=== PATIENT | female | born 1995 | race African-American/Black ===

== ENCOUNTER 2018-06-21 14:35 | Emergency (ER) | payer MEDICAID ==
[~2018-06-21] VITALS: Ht 167.6 cm; Wt 60.8 kg
--- NOTE | 2018-06-21 15:47 | PHYS DOC ---
Past Medical History Past Medical History: No Pertinent History (ADEOLA PEREZ APRN) Past Surgical History: No Surgical History (ADEOLA PEREZ APRN) Alcohol Use: Occasionally Drug Use: Marijuana (ADEOLA PEREZ APRN) Adult General Chief Complaint Chief Complaint: VAGINAL PROBLEM HPI HPI Patient is a 23 year old female with history of STDs including chlamydia who presents to the ED today complaining of vaginal discharge, dysuria and vaginal irritation for 1 week. Patient is concerned about STDs, would like to be tested and treated. Unknown if she is or not. (ADEOLA PEREZ APRN) Review of Systems Review of Systems Constitutional: Denies fever or chills [] Eyes: Denies change in visual acuity, redness, or eye pain [] HENT: Denies nasal congestion or sore throat [] Respiratory: Denies cough or shortness of breath [] Cardiovascular: No additional information not addressed in HPI [] GI: Denies abdominal pain, nausea, vomiting, bloody stools or diarrhea Female : STD concerns : Reports dysuria, denies hematuria [] Musculoskeletal: Denies back pain or joint pain [] Integument: Denies rash or skin lesions [] Neurologic: Denies headache, focal weakness or sensory changes [] All other systems were reviewed and found to be within normal limits, except as documented in this note. (ADEOLA PEREZ APRN) Current Medications Current Medications Current Medications Medications (Trade) Dose Ordered Sig/Sophia Start Time Stop Time Status Last Admin Dose Admin Azithromycin (Zithromax) 1,000 mg 1X ONCE 06/21/18 16:30 06/21/18 16:31 DC 06/21/18 16:02 1,000 MG Ceftriaxone Sodium (Rocephin Im) 250 mg 1X ONCE 06/21/18 16:30 06/21/18 16:31 DC 06/21/18 16:28 250 MG Cetirizine HCl (ZyrTEC) 10 mg 1X STAT 06/21/18 15:49 06/21/18 15:57 DC 06/21/18 16:03 10 MG Metronidazole (Flagyl) 2,000 mg 1X ONCE 06/21/18 16:30 06/21/18 16:31 DC 06/21/18 16:02 2,000 MG Ondansetron HCl (Zofran Odt) 4 mg 1X ONCE 06/21/18 16:30 06/21/18 16:31 DC 06/21/18 16:02 4 MG (MARIA ELENA ADAME MD) Allergies Allergies Allergies Coded Allergies Type Severity Reaction Last Updated Verified cephalexin Allergy Unknown 06/21/18 Yes sulfamethoxazole Allergy Unknown 06/21/18 Yes trimethoprim Allergy Unknown 06/21/18 Yes (MARIA ELENA ADAME MD) Physical Exam Physical Exam Constitutional: Well developed, well nourished, no acute distress, non-toxic appearance. [] HENT: Normocephalic, atraumatic, bilateral external ears normal, oropharynx moist, no oral exudates, nose normal. [] Eyes: PERRLA, EOMI, conjunctiva normal, no discharge. [] Neck: Normal range of motion, no tenderness, supple, no stridor. [] Cardiovascular:Heart rate regular rhythm, no murmur [] Lungs & Thorax: Bilateral breath sounds clear to auscultation [] Abdomen: Bowel sounds normal, soft, no tenderness, no masses, no pulsatile masses. [] Pelvic exam External pelvic with white discharge. Cervix appears erythematous, positive CMT , no adnexal tenderness, small amount of thick white discharge in the vaginal vault. Skin: Warm, dry, no erythema, no rash. [] Back: No tenderness, no CVA tenderness. [] Extremities: No tenderness, no cyanosis, no clubbing, ROM intact, no edema. [] Neurologic: Alert and oriented X 3, normal motor function, normal sensory function, no focal deficits noted. [] Psychologic: Affect normal, judgement normal, mood normal. [] (ADEOLA PEREZ APRN) Current Patient Data Vital Signs Vital Signs Date Time Temp Pulse Resp B/P (MAP) Pulse Ox O2 Delivery O2 Flow Rate FiO2 06/21/18 16:49 78 16 107/59 (75) 100 Room Air 06/21/18 15:25 98.5 98.5 (MARIA ELENA ADAME MD) Lab Values Laboratory Tests Test 06/21/18 14:41 06/21/18 15:53 Urine Collection Type Unknown Urine Color Yellow Urine Clarity Clear Urine pH 6.0 Urine Specific [place] 1.025 Urine Protein Negative mg/dL (NEG-TRACE) Urine Glucose (UA) Negative mg/dL (NEG) Urine Ketones (Stick) Negative mg/dL (NEG) Urine Blood Negative (NEG) Urine Nitrite Negative (NEG) Urine Bilirubin Negative (NEG) Urine Urobilinogen Dipstick 0.2 mg/dL (0.2 mg/dL) Urine Leukocyte Esterase Large (NEG) Urine RBC Rare /HPF (0-2) Urine WBC >40 /HPF (0-4) Urine Squamous Epithelial Cells Mod /LPF Urine Bacteria Moderate /HPF (0-FEW) Urine Mucus Marked /LPF POC Urine HCG, Qualitative Hcg negative (Negative) Microbiology 06/21/18 Wet Prep - Final, Complete (MARIA ELENA ADAME MD) Lab Values Laboratory Tests Test 06/21/18 14:41 06/21/18 15:53 Urine Collection Type Unknown Urine Color Yellow Urine Clarity Clear Urine pH 6.0 Urine Specific [place] 1.025 Urine Protein Negative mg/dL (NEG-TRACE) Urine Glucose (UA) Negative mg/dL (NEG) Urine Ketones (Stick) Negative mg/dL (NEG) Urine Blood Negative (NEG) Urine Nitrite Negative (NEG) Urine Bilirubin Negative (NEG) Urine Urobilinogen Dipstick 0.2 mg/dL (0.2 mg/dL) Urine Leukocyte Esterase Large (NEG) Urine RBC Rare /HPF (0-2) Urine WBC >40 /HPF (0-4) Urine Squamous Epithelial Cells Mod /LPF Urine Bacteria Moderate /HPF (0-FEW) Urine Mucus Marked /LPF POC Urine HCG, Qualitative Hcg negative (Negative) Microbiology 06/21/18 Wet Prep - Final, Complete (ADEOLA PEREZ APRN) EKG EKG [] (ADEOLA PEREZ APRN) Radiology/Procedures Radiology/Procedures [] (ADEOLA PEREZ APRN) Course & Med Decision Making Course & Med Decision Making Pertinent Labs and Imaging studies reviewed. (See chart for details) This is a 23-year-old female patient presenting to the ED today with vaginal discharge, dysuria, vaginal irritation and STD concern. Symptoms for 1 week. Patient was treated prophylaxis. Negative urine hCG, urine noted for infection. Wet prep noted for yeast infection as well as BV. Discharged with Flagyl, Macrobid and fluconazole. Follow-up with PCP or OB in one week. STD education provided especially the need to use protection. (ADEOLA PEREZ APRN) Course & Med Decision Making Staff Physician Addendum: I was working in the ER during the course of this patient's visit. I was available for consultation as needed, but I was not directly involved in the care of this patient. (MARIA ELENA ADAME MD) Dragon Disclaimer Dragon Disclaimer This electronic medical record was generated, in whole or in part, using a voice recognition dictation system. (ADEOLA PEERZ APRN) Departure Departure Impression: Primary Impression: Sexually transmitted disease Additional Impressions: Urinary tract infection Bacterial vaginosis Yeast vaginitis Disposition: 01 HOME, SELF-CARE Condition: STABLE Referrals: NO PCP (PCP) MARIMAR POLLOCK MD Follow-up in one week Patient Instructions: Bacterial Vaginosis, Sexually Transmitted Disease, Easy- to-Read Additional Instructions: You were seen in the emergency room and treated for sexually transmitted diseases. Use protection at all times. Contact all your sex partners, let them know you were treated for STDs and ask them to seek treatment too. You also have bacterial vaginosis, urinary tract infection and yeast infection. Use the prescribed medications as ordered. No sex for one week. Use protection at all times. Scripts Nitrofurantoin Monohyd/M-Cryst (MACROBID 100 MG CAPSULE) 100 Mg Capsule 1 CAP PO BID, #14 CAP Prov: ADEOLA PEREZ APRN 06/21/18 Metronidazole (FLAGYL) 500 Mg Tablet 1 TAB PO BID, #10 TAB Prov: ADEOLA PEREZ APRN 06/21/18 Fluconazole (DIFLUCAN) 150 Mg Tablet 1 TAB PO ONCE, #1 TAB 1 Refill One table today and repeat in 1 week Prov: ADEOLA PEREZ APRN 06/21/18 Problem Qualifiers Additional Impressions: Urinary tract infection Urinary tract infection type: site unspecified Hematuria presence: without hematuria Qualified Codes: N39.0 - Urinary tract infection, site not specified ADEOLA PEREZ APRN Jun 21, 2018 15:46 MARIA ELENA ADAME MD Jun 22, 2018 07:26
[2018-06-21] MEDS ORDERED: CETIRIZINE HCL 10 MG TABLET. PO STA (15:49)
[2018-06-21 16:08] LABS: BILIRUBIN,URINE NEGATIVE (NEG); CLARITY,URINE CLEAR; COLOR,URINE YELLOW; NITRITE,URINE NEGATIVE (NEG); PROTEIN,URINE NEGATIVE (NEG-TRACE); UROBILINOGEN,URINE 0.2 mg/dL (0.2 mg/dL)
[2018-06-21 16:18] LABS: BACTERIA,URINE MODERATE /HPF (0-FEW); RBC,URINE RARE /HPF (0-2); SQUAMOUS EPITHELIAL CELL,UR MOD /LPF; WBC,URINE >40 /HPF (0-4)
[2018-06-21] MEDS ORDERED: AZITHROMYCIN 250 MG TABLET. PO ONE (16:30)
[2018-06-21] MEDS ORDERED: metroNIDAZOLE 500 MG TABLET PO ONE (16:30)
[2018-06-21] MEDS ORDERED: cefTRIAXone IM 250 MG VIAL IM ONE (16:30)
[2018-06-21] MEDS ORDERED: ONDANSETRON ODT 4 MG TAB.RAPDIS. PO ONE (16:30)
[2018-06-21] MEDS ORDERED: FLUC150T PO (16:39)
[2018-06-21] MEDS ORDERED: NITR100C62 PO (16:39)
[2018-06-21] MEDS ORDERED: METR500T PO (16:39)
[2018-06-21 16:49] VITALS: BP 107/59
[2018-06-24 14:16] LABS: GC PROBE Negative (Negative)
== END 2018-06-21 16:49 | disposition home or self-care (01) ==
LOC: ER 14:35
DX: N39.0 Urinary tract infection, site not specified (principal); N76.0 Acute vaginitis; B96.89 Other specified bacterial agents as the cause of diseases classified elsewhere; B37.3 Candidiasis of vulva and vagina; A64 Unspecified sexually transmitted disease; Z88.1 Allergy status to other antibiotic agents; Z88.2 Allergy status to sulfonamides
CPT/HCPCS: 36415; 81001; 81025; 87086; 87491; 87591; 96372; 99284; J0696; Q0111; Q0144; Q0162